=== PATIENT | male | born 1955 | race Caucasian/White ===

== ENCOUNTER 2017-09-13 10:17 | Emergency (ER) | payer OTHER ==
--- NOTE | 2017-09-13 11:46 | CT ---
CT HEAD NONCONTRAST: HISTORY: Head injury. FINDINGS: There is no evidence of acute intracranial hemorrhage or infarct. Ventricles appear normal in size, shape, and position. There is no mass effect or shift of midline structures. Mucous retention cyst is partially visualized within the right maxillary sinus. IMPRESSION: No acute intracranial abnormalities are demonstrated. POS: LUZ
--- NOTE | 2017-09-13 11:47 | CT ---
CT OF THE CERVICAL SPINE WITHOUT CONTRAST: INDICATION: Fall 10 foot from a ladder with neck pain. FINDINGS: The craniocervical junction is normal-appearing. No acute fracture or subluxation is evident. There are small mild effusions involving the mastoid air cells bilaterally. There are vascular calcificat ions involving the carotid bulbs. The lung apices are clear. There is mild multilevel degenerative disk disease. IMPRESSION: No acute osseous abnormality. POS: PRUDENCIO
== END 2017-09-13 13:42 | disposition home or self-care (01) ==
LOC: ERS 10:17
DX: S06.0X1A Concussion with loss of consciousness of 30 minutes or less, initial encounter (principal); S00.03XA Contusion of scalp, initial encounter; I10 Essential (primary) hypertension; Z87.442 Personal history of urinary calculi; Z79.899 Other long term (current) drug therapy; W22.8XXA Striking against or struck by other objects, initial encounter; Y92.69 Other specified industrial and construction area as the place of occurrence of the external cause; Y99.0 Civilian activity done for income or pay
CPT/HCPCS: 70450; 72125